=== PATIENT | male | born 1990 | race Caucasian/White ===

== ENCOUNTER 2017-01-08 16:32 | Emergency (ER) | payer OTHER ==
[2017-01-08 16:51] VITALS: BP 132/96; PULSE 90; RESP 16; TEMP 99; O2SAT 96
[2017-01-08] MEDS ORDERED: IBUPROFEN 600 MG TAB PO ONE ×2 (17:12→17:17)
--- NOTE | 2017-01-08 17:17 | EDPHY ---
H & P Time Seen by Provider: 01/08/17 16:58 HPI/ROS: CHIEF COMPLAINT: Acute left wrist pain HISTORY OF PRESENT ILLNESS: 26-year-old male visiting from [id number] complaining of acute left wrist pain after snowboarding when a outstretched left hand. No paresthesia. Distal radius and anatomic snuffbox pain. Occurred shortly prior to arrival. PHYSICAL EXAM (Prior to examination, patient consented to physical exam, hands were washed and my usual and customary physical exam procedures followed) 1) GENERAL: Well-developed, well-nourished, alert and oriented. Appears to be in no acute distress. 2) HEAD: Normocephalic 3) HEENT: Pupils equal, round, reactive to light bilaterally. 4) LUNGS: Breathing comfortably. 5) MUSCULOSKELETAL: tender to palpation distal radius and anatomic snuffbox. Soft compartments. Normal coloration. 6) SKIN: Intact no tenting ] 7) VASCULAR: pulses and cap refill present are brisk 8) NEUROLOGIC: Radial, ulnar, median nerve function intact with no deficits appreciated on exam DIFFERENTIAL DIAGNOSIS: in no particular order including but not limited to fracture, sprain, compartment syndrome Xray of the Left wrist interpreted by myself: nondisplaced distal radius fracture Procedure: Splint Velcro thumb spica splint was applied by ER irrigation technician. After application of the splint I returned and re-examined the patient. The splint was adequately immobilizing the joint and distal to the splint the patient's circulation and sensation were intact. Patient shows no signs of compartment syndrome. Was given orthopedic precautions. Smoking Status: Never smoked Constitutional: Initial Vital Signs Temperature (C) 37.2 C 01/08/17 16:49 Heart Rate 90 01/08/17 16:49 Respiratory Rate 16 01/08/17 16:49 Blood Pressure 132/96 H 01/08/17 16:49 O2 Sat (%) 96 01/08/17 16:49 O2 Delivery Mode Room Air Allergies/Adverse Reactions: No Known Allergies Allergy (Unverified 01/08/17 16:49) Home Medications: Medication Instructions Recorded Hydrocodone/APAP 5/325 [Hardesty 1 tab PO Q6 PRN #10 tab 01/08/17 5/325 (RX)] MDM/Departure - MDM Procedures: Procedure: Splint A sugar-tong Orthoglass splint and sling was applied by ER irrigation technician. After application of the splint I returned and re-examined the patient. The splint was adequately immobilizing the joint and distal to the splint the patient's circulation and sensation were intact. Patient shows no signs of compartment syndrome. Was given orthopedic precautions. Medications Given: Discontinued Medications Ibuprofen (Motrin) 600 mg PO EDNOW ONE Stop: 01/08/17 17:18 Last Admin: 01/08/17 17:18 Dose: 600 mg - Depart Disposition: Home, Routine, Self-Care Clinical Impression: Distal radius fracture, left Qualifiers: Encounter type: initial encounter Fracture type: closed Fracture morphology: other fracture Qualified Code(s): S52.592A - Other fractures of lower end of left radius, initial encounter for closed fracture Condition: Good Instructions: Wrist Fracture in Adults (ED) Additional Instructions: Return to the ER immediately if you experience discoloration, have worsening pain, numbness, tingling, or any other symptoms that concern you. If you received x-rays in the emergency department today, be advised, that ligamentous , tendon, muscular, and other non-bony injury cannot be fully ruled out. [Try to keep your affected extremity elevated above the level of your chest, and keep cold packs on the affected area, for the next 48 hours.] You need to see an orthopedic surgeon in your hometown in the next 5-7 days Prescriptions: Hydrocodone/APAP 5/325 [Hardesty 5/325 (RX)] 1 tab PO Q6 PRN #10 tab PRN Reason: Pain, Severe Referrals: Anirudh Tubbs MD [Medical Doctor] - 2-3 days, call for appt. ( follow up with an orthopedic surgeon when you get back home. Take your x-rays with you)
== END 2017-01-08 18:26 | disposition home or self-care (01) ==
DX: S52.592A Other fractures of lower end of left radius, initial encounter for closed fracture (principal); X58.XXXA Exposure to other specified factors, initial encounter; Y99.8 Other external cause status; Y93.23 Activity, snow (alpine) (downhill) skiing, snowboarding, sledding, tobogganing and snow tubing
CPT/HCPCS: A4565